=== PATIENT | female | born 1950 | race Caucasian/White ===

== ENCOUNTER 2021-12-14 11:48 | Day surgery (SDC) | payer OTHER, SELFPAY ==
[2021-12-14 12:04] VITALS: BMI 26.9
[2021-12-14] MEDS: KETOROLAC OPHTH 0.5% 1 DROP EYE-LEFT ×2 (12:05→12:10)
[2021-12-14] MEDS: TETRACAINE 0.5% OPHTH 1 DROP EYE-LEFT ×2 (12:05→12:10)
[2021-12-14 12:15] VITALS: BP 111/88; PULSE 88; RESP 16; TEMP 36.1; O2SAT 95
[2021-12-14] MEDS: SODIUM CHLORIDE 0.9 % (FLUSH) 10 ML SYRINGE IVF (12:20)
[2021-12-14] MEDS: TETRACAINE 0.5% OPHTH 2 DROP EYE-LEFT (13:26)
--- NOTE | 2021-12-14 13:30 | W.ANESCHARGE ---
Anesthesia Charges Start Date/Time Anesthesia Start Date: 12/14/21 Anesthesia Start Time: 13:22 Stop Date/Time Anesthesia Stop Date: 12/14/21 Anesthesia Stop Time: 13:59 Summary Emergency: No
[2021-12-14] MEDS: BALANCED SALT IRRIG SOLN 15 ML EYE-LEFT (13:31)
[2021-12-14 14:00] VITALS: BP 110/85; PULSE 76; RESP 16; TEMP 36.1; O2SAT 97
--- NOTE | 2021-12-14 14:02 | W.PM.OPTPROC ---
Procedure Note Date of procedure: 12/14/21 Will [facility] bill your pro fee for this procedure?: Yes Procedure Description: SURGEON: Tamara Mark MD PREOPERATIVE DIAGNOSIS: Nuclear sclerotic cataract, left eye. POSTOPERATIVE DIAGNOSIS: Nuclear sclerotic cataract, left eye. NAME OF OPERATION: Phacoemulsification of cataract with posterior chamber intraocular lens implantation in the left eye. ANESTHESIA: Topical. ESTIMATED BLOOD LOSS: Less than 2 cc. COMPLICATIONS: None. PATHOLOGY SPECIMEN: None. INDICATIONS: See consult note for details. The risks, benefits and alternatives of the procedure were explained to the patient, who elected to proceed and signed informed consent to do so. PROCEDURE: The patient was brought to the pre-holding area where the left eye was identified as the operative eye. I placed my initials above this eye. The patient received eye drops consisting of 0.5% tetracaine, 1% tropicamide, 10% phenylephrine, and 0.5% ketorolac. The patient was then brought to the operating room where the left eye was again identified as the operative eye. The eye was prepped with Betadine and draped in the usual sterile ophthalmic fashion. A #15 super-sharp blade was used to create a paracentesis site. 1% non-preserved intracameral lidocaine was injected into the anterior chamber. Endocoat was injected into the anterior chamber. A 2.4 mm keratome was used to create a three-plane self-sealing incision 1 mm anterior to the temporal limbus. A cystotome was used to create an anterior capsular leaflet. The Utrata forceps were used to extend this to form a continuous curvilinear capsulorrhexis. Hydrodissection was performed. The cataract was removed with phacoemulsification using the mgyhga-bpg-lmeicku technique. The irrigation and aspiration tip was used to remove the remaining cortex. Healon was injected into the capsular bag. An CORI ZCB00 intraocular lens of 18.5 diopters was injected into the capsular bag. The irrigation and aspiration tip was used to remove the remaining viscoelastic. Balanced salt solution on a cannula was used to hydrate the wound, and the wound was found to be watertight. The pupil was noted to be round. DISPOSITION: The patient was taken to the recovery room and discharged to home in stable condition. The patient was instructed to call me or go to the emergency department with any sudden change, including dramatic loss of vision, severe pain in the eye or eyebrow region, nausea, or vomiting. The patient will follow up in the clinic tomorrow morning. Surgeon: Tamara Mark MD
--- NOTE | 2021-12-14 14:07 | W.ANESCHARGE ---
Anesthesia Charges Start Date/Time Anesthesia Start Date: 12/14/21 Anesthesia Start Time: 13:22 Stop Date/Time Anesthesia Stop Date: 12/14/21 Anesthesia Stop Time: 13:59 Summary Emergency: No
== END 2021-12-14 14:26 | disposition home or self-care (01) ==
PROVIDERS: PCP Family Medicine; Visit Provider Ophthalmology
PROC: (CPT 66984; principal; 2021-12-14 12:00)
DX: H25.12 Age-related nuclear cataract, left eye (principal)
CPT/HCPCS: 66984; 00142; A9270; J2250; J2405; J3010; V2632

== ENCOUNTER 2022-02-15 09:51 | Day surgery (SDC) | payer OTHER, SELFPAY ==
--- NOTE | 2022-02-15 10:52 | SUR.PREOP ---
Home COVID test confirmed negative by commercial insurance underwriter.
--- NOTE | 2022-02-15 10:52 | SUR.PREOP ---
The eye drops brought by the patient (Ketorolac and Prednisolone) are examined and I have determined they are labeled by the patient's pharmacy for this patient as prescribed by the surgeon. The bottles are intact, recently obtained and appear to be correct.
[2022-02-15 10:58] VITALS: BMI 25.0
[2022-02-15] MEDS: TETRACAINE 0.5% OPHTH 1 DROP EYE-RIGHT ×2 (10:58→11:05)
[2022-02-15] MEDS: KETOROLAC OPHTH 0.5% 1 DROP EYE-RIGHT ×2 (11:03→11:10)
[2022-02-15 11:06] VITALS: BP 133/99; PULSE 98; RESP 16; TEMP 37; O2SAT 94
[2022-02-15] MEDS: SODIUM CHLORIDE 0.9 % (FLUSH) 10 ML SYRINGE IVF (11:17)
[2022-02-15] MEDS: TETRACAINE 0.5% OPHTH 2 DROP EYE-RIGHT (11:59)
[2022-02-15] MEDS: BALANCED SALT IRRIG SOLN 15 ML EYE-RIGHT (12:03)
--- NOTE | 2022-02-15 12:06 | W.ANESCHARGE ---
Anesthesia Charges Start Date/Time Anesthesia Start Date: 02/15/22 Anesthesia Start Time: 11:57 Stop Date/Time Anesthesia Stop Date: 02/15/22 Anesthesia Stop Time: 12:36 Summary Emergency: No
[2022-02-15 12:51] VITALS: BP 140/98; PULSE 68; RESP 16; TEMP 36.3; O2SAT 95
--- NOTE | 2022-02-15 13:05 | W.ANESCHARGE ---
Anesthesia Charges Start Date/Time Anesthesia Start Date: 02/15/22 Anesthesia Start Time: 11:57 Stop Date/Time Anesthesia Stop Date: 02/15/22 Anesthesia Stop Time: 12:36 Summary Emergency: No
--- NOTE | 2022-02-15 15:53 | W.PM.OPTPROC ---
Procedure Note Date of procedure: 02/15/22 Will [facility] bill your pro fee for this procedure?: Yes Procedure Description: SURGEON: Tamara Mark MD PREOPERATIVE DIAGNOSIS: Nuclear sclerotic cataract, right eye. POSTOPERATIVE DIAGNOSIS: Nuclear sclerotic cataract, right eye. NAME OF OPERATION: Phacoemulsification of cataract with posterior chamber intraocular lens implantation in the right eye. ANESTHESIA: Topical. ESTIMATED BLOOD LOSS: Less than 2 cc. COMPLICATIONS: None. PATHOLOGY SPECIMEN: None. INDICATIONS: See consult note for details. The risks, benefits and alternatives of the procedure were explained to the patient, who elected to proceed and signed informed consent to do so. PROCEDURE: The patient was brought to the pre-holding area where the right eye was identified as the operative eye. I placed my initials above this eye. The patient received eye drops consisting of 0.5% tetracaine, 1% tropicamide, 10% phenylephrine, and 0.5% ketorolac. The patient was then brought to the operating room where the right eye was again identified as the operative eye. The eye was prepped with Betadine and draped in the usual sterile ophthalmic fashion. A #15 super-sharp blade was used to create a paracentesis site. 1% non-preserved intracameral lidocaine was injected into the anterior chamber. Endocoat was injected into the anterior chamber. A 2.4 mm keratome was used to create a three-plane self-sealing incision 1 mm anterior to the temporal limbus. A cystotome was used to create an anterior capsular leaflet. The Utrata forceps were used to extend this to form a continuous curvilinear capsulorrhexis. Hydrodissection was performed. The cataract was removed with phacoemulsification using the urtkfq-yli-fdglaqw technique. The irrigation and aspiration tip was used to remove the remaining cortex. Healon was injected into the capsular bag. An CORI ZCB00 intraocular lens of 22.5 diopters was injected into the capsular bag. The irrigation and aspiration tip was used to remove the remaining viscoelastic. Balanced salt solution on a cannula was used to hydrate the wound, and the wound was found to be watertight. The pupil was noted to be round. DISPOSITION: The patient was taken to the recovery room and discharged to home in stable condition. The patient was instructed to call me or go to the emergency department with any sudden change, including dramatic loss of vision, severe pain in the eye or eyebrow region, nausea, or vomiting. The patient will follow up in the clinic tomorrow morning. Surgeon: Tamara Mark MD
== END 2022-02-15 13:05 | disposition home or self-care (01) ==
PROVIDERS: PCP Family Medicine; Visit Provider Ophthalmology
PROC: (CPT 66984; principal; 2022-02-15 10:40)
DX: H25.11 Age-related nuclear cataract, right eye (principal)
CPT/HCPCS: 66984; 00142; A9270; J2250; J2405; J3010; V2632